=== PATIENT | female | born 1955 | race Caucasian/White ===

== ENCOUNTER 2017-02-27 12:23 | Day surgery (SDC) | payer BC ==
[2017-02-26 15:32] VITALS: BMI 28.4
[~2017-02-27] VITALS: Ht 160 cm; Wt 140.0 kg
[2017-02-27] MEDS ORDERED: FER325 PO (13:08)
[2017-02-27] MEDS ORDERED: RAMI5CAP23 PO (13:09)
[2017-02-27] MEDS ORDERED: CARI350T29 PO (13:10)
[2017-02-27] MEDS ORDERED: CLON1TAB3 PO (13:10)
[2017-02-27] MEDS ORDERED: LANT3I SC (13:11)
[2017-02-27] MEDS ORDERED: CHOL4POW PO (13:11)
[2017-02-27] MEDS ORDERED: INSU100C SQ (13:12)
[2017-02-27] MEDS ORDERED: RABE20TA5 PO (13:13)
[2017-02-27] MEDS ORDERED: POTA10TA6 PO (13:13)
[2017-02-27] MEDS ORDERED: GABA-526 PO (13:13)
[2017-02-27] MEDS ORDERED: ACET1TAB40 PO (13:14)
[2017-02-27] MEDS ORDERED: MTF1000T PO (13:14)
[2017-02-27] MEDS ORDERED: CEVI30CA8 PO (13:15)
[2017-02-27] MEDS ORDERED: BUPIVACAINE 0.5% (SDV) 30 ML INJ ONE (13:15)
[2017-02-27] MEDS ORDERED: OMEG1CAP2 PO (13:15)
[2017-02-27] MEDS ORDERED: METF1000 PO (13:15)
[2017-02-27] MEDS ORDERED: CETI10CA PO (13:16)
[2017-02-27] MEDS ORDERED: SITA100T8 PO (13:16)
[2017-02-27] MEDS ORDERED: SUMA5SPR2 NASAL (13:16)
[2017-02-27] MEDS ORDERED: TRIAMCINOLONE ACET 40 MG/ML INJ ONE (13:16)
[2017-02-27] MEDS ORDERED: MULTI PO (13:17)
[2017-02-27] MEDS ORDERED: DEXAMETHASONE 4 MG/ML 1 ML INJ ONE (13:42)
[2017-02-27 13:50] VITALS: Ht 160 cm; Wt 140.0 kg
[2017-02-27 13:56] VITALS: BP 140/63; PULSE 95; RESP 18
--- NOTE | 2017-02-27 14:07 | HPN ---
Date/Time of Note Date/Time of Note DATE: 02/27/17 TIME: 14:07 Interval H&P Admission Note Pt. seen H&P reviewed: No system changes NATHAN GOMEZ February 27, 2017 14:07
[2017-02-27] MEDS ORDERED: LIDOCAINE 2% (SDV) 5 ML INJ ONE (14:19)
[2017-02-27] MEDS ORDERED: MIDAZOLAM 1 MG/ML 2 ML INJ ONE (14:19)
[2017-02-27] MEDS ORDERED: FENTAnyl 50 MCG/ML VIAL ONE (14:19)
[2017-02-27] MEDS ORDERED: PROPOFOL 100 ML ONE (14:19)
[2017-02-27 14:47] VITALS: BP 144/78; PULSE 99; RESP 14
[2017-02-27 14:52] VITALS: BP 142/68; PULSE 99; RESP 14
[2017-02-27 14:57] VITALS: BP 136/64; PULSE 92; RESP 14
--- NOTE | 2017-02-27 14:57 | OPR ---
Date/Time of Note Date/Time of Note DATE: 02/27/17 TIME: 14:53 Operative Report Procedure Date: February 27, 2017 Preoperative Diagnosis Lumbar Radiculopathy Postoperative Diagnosis Same as above Operation Performed Left sacral nerve one transforaminal epidural injection Anesthesia: MAC Anesthesiologist: KAROLINA CRAFT Estimated Blood Loss: none Complications: None Procedure Description P The risks and benefits were explained to and accepted by the patient. These included those involving not only the risks of the block procedure, but those regarding the use of radiation and of the x-ray contrast agent. DESCRIPTION OF PROCEDURE: The patient was then placed in the prone position on the fluoroscopic compatible table. The skin over the involved area was sterilely and broadly prepped and draped in the usual fashion. Using fluoroscopic guidance, the spinal elements were viewed from a posterior vantage point. A location for skin entrance was anesthetized with a small amount of 1% lidocaine. A 25-gauge spinal epidural needle was advanced to the 6 oclock position on the left sacral foramen. The sacral bone was touched, and needle advanced into the foramen slowly. There was no paresthesia elicited. Through the spinal needle , 8 mg of decadron were deposited.T. The patient was then placed in the supine position and recovered for approximately 5 minutes. The procedure was well tolerated. The patient was then transferred to the recovery room and discharged to home when appropriate in stable condition with instructions for precautions, care and follow up. IG] NATHAN GOMEZ February 27, 2017 14:57
[2017-02-27] MEDS ORDERED: INSULIN ASPART [NOVOLOG] 3 ML PEN SC ONE (15:00)
[2017-02-27] MEDS ORDERED: ONDANSETRON 4 MG INJ IV PRN (15:00)
[2017-02-27] MEDS ORDERED: OXYCODONE/ACETAMINOPHEN (5/325) TAB PO PRN ×2 (15:00)
[2017-02-27] MEDS ORDERED: DIPHENHYDRAMINE 50 MG INJ IV PRN (15:00)
[2017-02-27] MEDS ORDERED: EPHEDrine SULFATE 50 MG/5 ML SYG IV PRN (15:00)
[2017-02-27] MEDS ORDERED: hydrALAzine 20 MG INJ IV PRN (15:00)
[2017-02-27] MEDS ORDERED: morphine (1 MG/ML) 10ML SYRINGE IV PRN ×3 (15:00)
[2017-02-27 15:02] VITALS: BP 136/66; PULSE 88; RESP 16
[2017-02-27 15:10] VITALS: BP 148/65; PULSE 91; RESP 18
--- NOTE | 2017-02-27 15:23 | RADRPT ---
Vent Rate: 88 bpm RR Interval: 0 msec SD Interval: 140 msec QRS Duration: 68 msec QT Interval: 382 msec QTC Interval: 462 msec P-R-T [place]: 46 - 5 - 0 degrees Normal sinus rhythm Nonspecific T wave abnormality Abnormal ECG Electronically Signed By: Apollo Dodd [id number]
--- NOTE | 2017-02-27 20:05 | RADRPT ---
PROCEDURE: Intraoperative imaging of the lumbar spine with fluoroscopy. CLINICAL INDICATION: Back pain. Intraoperative. TECHNIQUE: 2 images images of the lumbar spine were obtained in the operating room with an image i ntensifier. No radiologist was in attendance. 18.7 seconds of fluoroscopy time was used. COMPARISON: No prior study is available for comparison. FINDINGS: Images demonstrate a needle overlying the sacrum posteriorly. IMPRESSION: 1. Intraoperative imaging of the lumbar spine. RPTAT: QQ .Davy Sullivan MD, MD Date Time Electronically viewed and signed by .Davy Sullivan MD, MD on 02/27/2017 20:05 .R/
== END 2017-02-27 15:43 | disposition home or self-care (01) ==
LOC: SDS 12:23 → EDBD 12:23 → SDS 15:43
PROVIDERS: ATTEND Anesthesiology
DX: M54.16 Radiculopathy, lumbar region (principal); E11.9 Type 2 diabetes mellitus without complications
CPT/HCPCS: 64483; 72220; 82962; 93005; J1100; J2250; J3010; J1815